=== PATIENT | female | born 1980 | race African-American/Black ===

== ENCOUNTER → 2021-12-10 08:12 | Outpatient (BNVA) | payer OTHER, SELFPAY | PROVIDERS: Visit Provider Physician Assistant Surgical ==

== ENCOUNTER 2021-12-11 06:59 | Outpatient (REF) | payer OTHER, SELFPAY ==
--- NOTE | ~2021-12-11 | XR_ITS ---
EXAMINATION: XR CHEST CLINICAL INFORMATION: Morbid obesity due to excess calories COMPARISON: None TECHNIQUE: 2 views of the chest were obtained. FINDINGS: Lung volumes are slightly diminished resulting in some crowding of the bronchovascular structures. Significant abnormality is noted involving the heart, lungs, mediastinum, bony thorax or soft tissues. XR/XR chest 2V IMPRESSION: Unremarkable examination in a patient with slightly diminished lung volumes.
--- NOTE | 2021-12-11 07:08 | ECG_ITS ---
Test Reason : OBESITY Blood Pressure : / mmHG Vent. Rate : 077 BPM Atrial Rate : 077 BPM P-R Int : 188 ms QRS Dur : 092 ms QT Int : 384 ms P-R-T Axes : 059 033 024 degrees QTc Int : 434 ms Normal sinus rhythm Normal ECG No previous ECGs available Referred By: Sandip Noland Electronically Signed By:SHASTA HURLEY MD
[2021-12-11 07:18] LABS: MANUAL DIFF FLAG NO
[2021-12-11 08:07] LABS: Basophils Percent Auto 0.4 % (0-2); Eosinophils Absolute Auto 0.1 X10*3/uL (0.0-0.4); Eosinophils Percent Auto 1.3 % (0-4); Hemoglobin 13.4 g/dl (12.0-16.0); Imm Gran Abs Auto 0.01 X10*3/uL (0.00-0.03); Imm Gran Pct Auto 0.2 % (0.0-0.4); Lymphocytes Percent Auto 43.1 % (20-40); Mean Corpuscular HGB Conc 31.9 g/dl (31.0-35.0); Mean Corpuscular Hemoglobin 28.2 pg (27.0-33.0); Mean Corpuscular Volume 88.2 fL (80.0-98.0); Monocytes Absolute Auto 0.3 X10*3/uL (0.1-1.2); Monocytes Percent Auto 6.8 % (2-11); Neutrophils Absolute Auto 2.2 x10*3/uL (2.0-8.3); Neutrophils Percent Auto 48.2 % (45-73); Platelet Count 255 X10*3/uL (160-400); Red Blood Count 4.76 X10*6/uL (4.20-5.50); Red Cell Distribution Width 13.2 % (11.0-16.0); White Blood Count 4.6 X10*3/uL (4.8-10.8)
[2021-12-11 08:38] LABS: Anion Gap 14 (12-20); Blood Urea Nitrogen 16 mg/dL (9-16); C Reactive Protein 0.39 mg/dL (< or = 0.50); Calcium 9.8 mg/dL (8.4-10.2); Carbon Dioxide 27 mmol/L (22-29); Chloride 105 mmol/L (96-108); Cholesterol 218 mg/dL; Estimated Average Glucose 111 mg/dL; Estimated Glomerular Filt Rate > 60; Glucose Random 95 mg/dL (60-115); HDL Cholesterol 60 mg/dL; Hemoglobin A1c % 5.5 %; Iron 71 mcg/dL (30-160); LDL Cholesterol Calculated 148 mg/dl; Percent Iron Saturation 16 % (15-50); Potassium 4.7 mmol/L (3.3-5.1); Sodium 141 mmol/L (135-145); Total Iron Binding Capacity 435 mcg/dL (228-428); Triglycerides 50 mg/dL; Unsaturated Iron Binding 364 ug/dL
[2021-12-11 09:01] LABS: Ferritin 77 ng/mL (10-250); TSH reflex Free T4 2.78 uIU/mL (0.32-4.0); Vitamin D 25-OH Total 11.4 ng/mL (>30)
[2021-12-11 09:45] LABS: Folate 9.9 ng/mL (> or = 4.0); Vitamin B12 797 pg/mL (200-900)
[2021-12-12 18:21] LABS: Calcium (PTHI) 9.8 mg/dL (8.6-10.2); PTHI 64 pg/mL (14-64)
[2021-12-15 21:47] LABS: Zinc 82 mcg/dL (60-130)
[2021-12-17 13:02] LABS: Vitamin B1 13 nmol/L (8-30)
[2021-12-17 18:01] LABS: Vitamin A 47 mcg/dL (38-98)
== END 2021-12-11 07:00 | disposition home or self-care (01) ==
LOC: HO.XRAY 06:59
PROVIDERS: Visit Provider Physician Assistant Surgical
DX: Z01.818 Encounter for other preprocedural examination (principal); E66.01 Morbid (severe) obesity due to excess calories
CPT/HCPCS: 36415; 71046; 80048; 80061; 82306; 82607; 82728; 82746; 83036; 83540; 83970; 84425; 84443; 84590; 84630; 85025; 86140; 93005

== ENCOUNTER → 2022-01-05 08:13 | Outpatient (BNVA) | payer OTHER, SELFPAY | PROVIDERS: Visit Provider Dietitian, Registered | DX: E66.01 Morbid (severe) obesity due to excess calories (principal) | CPT/HCPCS: 97802 ==

== ENCOUNTER → 2022-01-09 08:01 | Outpatient (BNVA) | payer OTHER, SELFPAY | PROVIDERS: Visit Provider Surgery | DX: Z13.89 Encounter for screening for other disorder (principal) ==

== ENCOUNTER → 2022-02-04 08:18 | Outpatient (BNVA) | payer OTHER, SELFPAY | PROVIDERS: Referring Provider Physician Assistant Surgical; Visit Provider Dietitian, Registered | DX: Z13.89 Encounter for screening for other disorder (principal) ==